=== PATIENT | male | born 1985 | race African-American/Black ===

== ENCOUNTER 2016-05-29 20:32 | Emergency (ER) | payer OTHER ==
[~2016-05-29] VITALS: Ht 185.4 cm; Wt 148.0 kg
[~2016-05-29 20:32] MED LIST: LORTA5 PO
[2016-05-29 20:36] VITALS: BP 141/86; PULSE 104; RESP 18; TEMP 99.3; O2SAT 96
[2016-05-29] MEDS ORDERED: SODIUM CHLOR 0.9% 1000 ML INJ 1,000 ML IV ONE (21:00)
[2016-05-29] MEDS ORDERED: ONDANSETRON HCL 4 MG/2 ML VIAL IV PUSH ONE (21:00)
[2016-05-29] MEDS ORDERED: KETOROLAC TROMETHAMINE 30 MG/ML (IVP) VIAL IV PUSH ONE (21:00)
[2016-05-29 21:13] LABS: AUTOMATED NEUTROPHIL # 3.8 TH/MM3 (1.8-7.7); BASOPHIL # 0.1 TH/MM3 (0-0.2); BASOPHIL % 2.9 % (0.0-2.0); EOSINOPHIL % 0.6 % (0.0-4.0); HEMATOCRIT 44.1 % (39.0-51.0); HEMO FLAGS DIFF FINAL; LYMPH % 9.9 % (9.0-44.0); LYMPHOCYTE # 0.5 TH/MM3 (1.0-4.8); MEAN CELL VOLUME 82.4 FL (80.0-100.0); MEAN CORPUSCULAR HEMOGLOBIN 26.9 PG (27.0-34.0); MEAN CORPUSCULAR HGB CONC 32.6 % (32.0-36.0); MONO % 11.7 % (0.0-8.0); NEUT % 74.9 % (16.0-70.0); PLATELET COUNT 189 TH/MM3 (150-450); RED BLOOD COUNT 5.35 MIL/MM3 (4.50-5.90); RED CELL DISTRIBUTION WIDTH 13.1 % (11.6-17.2)
--- NOTE | 2016-05-29 21:13 | PD ---
HPI Chief Complaint: cough and cold symptoms Time Seen by Provider: 20:47 Travel History International Travel<30 days: No Contact w/Intl Traveler<30days: No Traveled to known affect area: No History of Present Illness HPI The patient is a 31-year-old [place] male who presents emergency department for cough and cold symptoms. The patient states his symptoms started 2 days ago with a sore throat, nasal congestion, dry nonproductive cough. Patient does note subjective fevers at home, took Tylenol at approximately 4 PM. He does note intermittent headaches, but denies any photophobia or neck pain. The patient did complain of nausea and vomiting yesterday, nausea has slightly improved. He did have 1 episode of diarrhea. He also complains of diffuse body aches and low back pain. Symptoms are moderate, slightly alleviated with Tylenol, and there are no known exacerbating factors. PFSH Past Medical History Asthma: Yes Social History Alcohol Use: No Tobacco Use: No Substance Use: No Allergies-Medications (Allergen,Severity, Reaction): Coded Allergies: No Known Allergies (Unverified , 02/08/13) Reported Meds & Prescriptions Reported Meds & Active Scripts Active No Active Prescriptions or Reported Medications Review of Systems Except as stated in HPI: all other systems reviewed are Neg General / Constitutional: Positive: Fever HENT: Positive: Headaches, Sore Throat, Congestion, No: Neck Pain Respiratory: Positive: Cough, No: Shortness of Breath Gastrointestinal: Positive: Nausea, Vomiting, No: Abdominal Pain Genitourinary: No: Dysuria Musculoskeletal: Positive: Myalgias Skin: No Rash Physical Exam Narrative GENERAL: Awake, alert, pleasant 31-year-old male who appears his stated age and is in no acute respiratory distress. SKIN: Slightly diaphoretic. HEAD: Atraumatic. Normocephalic. EYES: Pupils equal and round. Pupils are 3 mm bilateral and reactive. EOMs are intact. No obvious photophobia. ENT: No nasal bleeding or discharge. Mild erythema without exudate in posterior oropharynx. NECK: Trachea midline. No JVD. No meningeal signs. CARDIOVASCULAR: Regular, tachycardic with a heart rate of 102. RESPIRATORY: No accessory muscle use. Clear to auscultation. Breath sounds equal bilaterally. GASTROINTESTINAL: Abdomen soft, non-tender, nondistended. No rebound tenderness. MUSCULOSKELETAL: No obvious deformities. No clubbing. No cyanosis. No edema. NEUROLOGICAL: Awake and alert. No obvious cranial nerve deficits. Motor grossly within normal limits. Normal speech. PSYCHIATRIC: Appropriate mood and affect; insight and judgment normal. Data Data Last Documented VS Vital Signs Date Time Temp Pulse Resp B/P Pulse Ox O2 Delivery O2 Flow Rate FiO2 05/29/16 21:10 Room Air 05/29/16 20:36 99.3 104 18 141/86 96 Orders Influenzae A/B Antigen (05/29/16 20:54) Chest, Single Ap (05/29/16 ) Complete Blood Count With Diff (05/29/16 20:54) Comprehensive Metabolic Panel (05/29/16 20:54) Sodium Chlor 0.9% 1000 Ml Inj (Ns 1000 M (05/29/16 21:00) Ondansetron Inj (Zofran Inj) (05/29/16 21:00) Ketorolac Inj (Toradol Inj) (05/29/16 21:00) Labs Laboratory Tests Test 05/29/16 21:08 White Blood Count 5.0 TH/MM3 Red Blood Count 5.35 MIL/MM3 Hemoglobin 14.4 GM/DL Hematocrit 44.1 % Mean Corpuscular Volume 82.4 FL Mean Corpuscular Hemoglobin 26.9 PG Mean Corpuscular Hemoglobin 32.6 % Concent Red Cell Distribution Width 13.1 % Platelet Count 189 TH/MM3 Mean Platelet Volume 8.3 FL Neutrophils (%) (Auto) 74.9 % Lymphocytes (%) (Auto) 9.9 % Monocytes (%) (Auto) 11.7 % Eosinophils (%) (Auto) 0.6 % Basophils (%) (Auto) 2.9 % Neutrophils # (Auto) 3.8 TH/MM3 Lymphocytes # (Auto) 0.5 TH/MM3 Monocytes # (Auto) 0.6 TH/MM3 Eosinophils # (Auto) 0.0 TH/MM3 Basophils # (Auto) 0.1 TH/MM3 CBC Comment DIFF FINAL Differential Comment Sodium Level 136 MEQ/L Potassium Level 4.2 MEQ/L Chloride Level 101 MEQ/L Carbon Dioxide Level 27.3 MEQ/L Anion Gap 8 MEQ/L Blood Urea Nitrogen 8 MG/DL Creatinine 0.93 MG/DL Estimat Glomerular Filtration 115 ML/MIN Rate Random Glucose 103 MG/DL Calcium Level 9.1 MG/DL Total Bilirubin 0.5 MG/DL Aspartate Amino Transf 76 U/L (AST/SGOT) Alanine Aminotransferase 117 U/L (ALT/SGPT) Alkaline Phosphatase 47 U/L Total Protein 7.7 GM/DL Albumin 3.9 GM/DL MDM Medical Decision Making Medical Screen Exam Complete: Yes Emergency Medical Condition: Yes Medical Record Reviewed: Yes Interpretation(s) Last Impressions Chest X-Ray 05/29/16 0000 Signed Impressions: Service Date/Time: Sunday, May 29, 2016 21:10 - CONCLUSION: No acute disease. Mark Ivory MD Laboratory Tests Test 05/29/16 21:08 White Blood Count 5.0 TH/MM3 Red Blood Count 5.35 MIL/MM3 Hemoglobin 14.4 GM/DL Hematocrit 44.1 % Mean Corpuscular Volume 82.4 FL Mean Corpuscular Hemoglobin 26.9 PG Mean Corpuscular Hemoglobin 32.6 % Concent Red Cell Distribution Width 13.1 % Platelet Count 189 TH/MM3 Mean Platelet Volume 8.3 FL Neutrophils (%) (Auto) 74.9 % Lymphocytes (%) (Auto) 9.9 % Monocytes (%) (Auto) 11.7 % Eosinophils (%) (Auto) 0.6 % Basophils (%) (Auto) 2.9 % Neutrophils # (Auto) 3.8 TH/MM3 Lymphocytes # (Auto) 0.5 TH/MM3 Monocytes # (Auto) 0.6 TH/MM3 Eosinophils # (Auto) 0.0 TH/MM3 Basophils # (Auto) 0.1 TH/MM3 CBC Comment DIFF FINAL Differential Comment Sodium Level 136 MEQ/L Potassium Level 4.2 MEQ/L Chloride Level 101 MEQ/L Carbon Dioxide Level 27.3 MEQ/L Anion Gap 8 MEQ/L Blood Urea Nitrogen 8 MG/DL Creatinine 0.93 MG/DL Estimat Glomerular Filtration 115 ML/MIN Rate Random Glucose 103 MG/DL Calcium Level 9.1 MG/DL Total Bilirubin 0.5 MG/DL Aspartate Amino Transf 76 U/L (AST/SGOT) Alanine Aminotransferase 117 U/L (ALT/SGPT) Alkaline Phosphatase 47 U/L Total Protein 7.7 GM/DL Albumin 3.9 GM/DL Date/Time Procedure Status Source Growth 05/29/16 21:08 Influenza Types A,B Antigen (JEFFRY) - Final Complete Nasal Aspirate Positive For Flu A Antigen Differential Diagnosis Differential diagnosis includes meningitis, influenza, viral syndrome, pneumonia , dehydration, pharyngitis. Narrative Course IV was established, labs are drawn and sent, and the patient was placed on cardiac telemetry monitoring and continuous pulse oximetry monitoring. The patient was administered Toradol and IV fluids. Influenza screen was sent to lab. Chest x-ray was obtained. Chest x-ray was negative. Laboratory evaluation is unremarkable except for elevated monocytes. Influenza screen is positive, therefore, patient will be treated with Tamiflu, work excuse for 3 days, and advised to alternate Tylenol and Motrin for pain and fever. Patient is stable for outpatient follow-up. Diagnosis Primary Impression: Influenza A Patient Instructions: General Instructions Additional Instructions: Work excuse for 3 days. Alternate Tylenol and Motrin for fever. Tamiflu as directed. Plenty fluids to stay hydrated. Return if symptoms worsen or progress. Med/Other Pt SpecificInfo: Prescription(s) given Scripts Oseltamivir (Tamiflu)75 Mg Cap75 Mg PO BID 5 Days Ref 0 Prov:Felix Alarcon MD 05/29/16 Disposition: 01 DISCHARGE HOME Condition: Stable Felix Alarcon MD May 29, 2016 21:13
[2016-05-29 21:21] LABS: CHLORIDE 101 MEQ/L (98-107); POTASSIUM 4.2 MEQ/L (3.5-5.1); SODIUM (NA) 136 MEQ/L (136-145)
[2016-05-29 21:26] LABS: ANION GAP 8 MEQ/L (5-15); BICARBONATE 27.3 MEQ/L (21.0-32.0); BLOOD UREA NITROGEN 8 MG/DL (7-18)
[2016-05-29 21:29] LABS: ALT (GPT) 117 U/L (12-78); AST (GOT) 76 U/L (15-37)
[2016-05-29 21:30] LABS: GLOMERULAR FILTRATION RATE 115 ML/MIN (>89)
[2016-05-29 21:31] LABS: TOTAL BILIRUBIN ADULT 0.5 MG/DL (0.2-1.0)
[2016-05-29 21:32] LABS: ALKALINE PHOSPHATASE 47 U/L (45-117)
--- NOTE | 2016-05-29 21:32 | RADHPO ---
EXAM DATE/TIME: 05/29/2016 21:10 [facility] COMPARISON: No previous studies available for comparison. INDICATIONS : Cough and congestion. MEDICAL HISTORY : None. SURGICAL HISTORY : Knee surgery ENCOUNTER: Initial ACUITY: 2 days PAIN SCORE: 7/10 LOCATION: Bilateral chest FINDINGS: A single view of the chest demonstrates the lungs to be symmetrically aerated without evidence of mas s, infiltrate or effusion. The cardiomediastinal contours are unremarkable. Osseous structures are intact. CONCLUSION: No acute disease. Mark Ivory MD on May 29, 2016 at 21:30 Board Certified Radiologist. This report was verified electronically.
[2016-05-29] MEDS ORDERED: OSEL75 PO (21:46)
[2016-05-29 22:12] VITALS: BP 142/55
[2016-05-29 22:14] VITALS: RESP 18
== END 2016-05-29 22:30 | disposition home or self-care (01) ==
LOC: PHED 20:32
DX: J09.X2 Influenza due to identified novel influenza A virus with other respiratory manifestations (principal); R51 Headache; M54.5 Low back pain
CPT/HCPCS: 71010; 80053; 85025; 87804; 96361; 96374; 96375; 99283; J1885; J2405; J7030

== ENCOUNTER 2017-03-06 10:13 | Emergency (ER) | payer OTHER ==
[~2017-03-06] VITALS: Ht 185.4 cm; Wt 136.0 kg
[~2017-03-06 10:13] MED LIST changes: -LORTA5 PO; +OSEL75 PO
[2017-03-06 10:22] VITALS: BP 132/72; PULSE 92; RESP 18; TEMP 98.1; O2SAT 97
--- NOTE | 2017-03-06 11:10 | PD ---
HPI Chief Complaint: Musculoskeletal Complaint Time Seen by Provider: 11:03 Travel History International Travel<30 days: No Contact w/Intl Traveler<30days: No Traveled to known affect area: No History of Present Illness HPI 32-year-old male presents to the emergency department for evaluation right ankle pain that started yesterday. He denies any traumatic injury. He states it worsened tomorrow this morning when he put weight on it. He denies any history of injury to the right ankle. Patient denies any other complaints. No head injury or LOC. No neck pain or back pain. No chest pain or abdominal pain. Her nausea, vomiting, diarrhea. Pain is worse movement. Alleviating factor is rest. He has not taken anything [id number] for the pain. He denies any history of IV drug use. He denies any fevers. Severity is mild. [facility] Past Medical History Medical History: Denies Significant Hx Asthma: Yes Diminished Hearing: No ?: Not Social History Alcohol Use: No Tobacco Use: No Substance Use: No Allergies-Medications (Allergen,Severity, Reaction): Coded Allergies: No Known Allergies (Unverified Allergy, Unknown, 03/06/17) Reported Meds & Prescriptions Reported Meds & Active Scripts Active Review of Systems Except as stated in HPI: all other systems reviewed are Neg Physical Exam Narrative GENERAL: Well-nourished, well-developed male patient, ambulatory. Afebrile. SKIN: Focused skin assessment warm/dry. No erythema or warmth over right ankle. HEAD: Normocephalic. Atraumatic. EYES: No scleral icterus. No injection or drainage. NECK: Supple, trachea midline. No JVD or lymphadenopathy. CARDIOVASCULAR: Regular rate and rhythm without murmurs, gallops, or rubs. Right pedal pulse is 2+. RESPIRATORY: Breath sounds equal bilaterally. No accessory muscle use. Lungs are clear to auscultation. GASTROINTESTINAL: Abdomen soft, non-tender, nondistended. MUSCULOSKELETAL: No cyanosis, or edema. Patient has tenderness over right anterior and medial ankle. No lateral tenderness. No dorsal foot tenderness. He has full sensation distal right lower extremity. No calf tenderness or swelling. BACK: Nontender without obvious deformity. No CVA tenderness. Data Data Last Documented VS Vital Signs Date Time Temp Pulse Resp B/P (MAP) Pulse Ox O2 Delivery O2 Flow Rate FiO2 03/06/17 10:22 98.1 92 18 132/72 (92) 97 Orders Orders Ankle, Complete ([id number]) (03/06/17 ) Ibuprofen (Motrin) (03/06/17 11:15) Ice / Cold Pack PRN (03/06/17 11:07) Splint Or Brace Apply/Monitor (03/06/17 11:40) Crutches (03/06/17 11:40) MDM Medical Decision Making Medical Screen Exam Complete: Yes Emergency Medical Condition: Yes Medical Record Reviewed: Yes Interpretation(s) x-ray of the right ankle - CONCLUSION: Unremarkable examination of the right ankle. Differential Diagnosis Sprain versus muscle strain versus fracture versus contusion versus gout versus septic arthritis Narrative Course 32-year-old male presents to the emergency department for evaluation of right ankle pain that started yesterday without injury. No evidence of septic joint on exam. Patient is given ibuprofen 800 mg by mouth. Ice pack is applied. X- ray of the right ankle is ordered and pending. X-ray of the right ankle is unremarkable. Patient provided Toño bandage and crutches. He'll be discharged with a prescription for ibuprofen for pain. He is to follow orthopedist if pain continues or worsens. Follow-up with your primary care physician. Return to the emergency department for any acute worsening of symptoms. Diagnosis Primary Impression: Right ankle pain Qualified Codes: M25.571 - Pain in right ankle and joints of right foot Referrals: Orthopedist Primary Care Physician Patient Instructions: Ankle Sprain (ED), General Instructions Additional Instructions: Wear Toño bandage and use crutches as needed for support. Take ibuprofen as instructed as needed with food for pain. Ice for 20 minutes 4-5 times daily. Elevate. Follow-up with your primary care physician. Return to the emergency department for any acute worsening of symptoms. Med/Other Pt SpecificInfo: Prescription(s) given Scripts Ibuprofen (Ibuprofen) 800 Mg Tab 800 MG PO TID Y for PAIN SCALE 1 TO 10, #21 TAB 0 Refills Prov: Kyung Hernandez LEONIE 03/06/17 Disposition: 01 DISCHARGE HOME Condition: Stable Kyung Hernandez LEONIE Mar 06, 2017 11:10
[2017-03-06] MEDS ORDERED: IBUPROFEN 800 MG TAB PO ONE (11:15)
--- NOTE | 2017-03-06 11:32 | RADRPT ---
EXAM DATE/TIME: 03/06/2017 11:11 [facility] COMPARISON: No previous studies available for comparison. INDICATIONS : Right ankle pain; No known injury. MEDICAL HISTORY : None. SURGICAL HISTORY : None. ENCOUNTER: Initial ACUITY: 2 days PAIN SCORE: 10/10 LOCATION: Right medial ankle. FINDINGS: Three view exam was performed of the right ankle. The bony structures are in normal alignment. No e vidence of fracture, dislocation, or soft tissue swelling. The ankle mortise is intact. No radiopaq ue foreign bodies are seen. Bony mineralization is normal. CONCLUSION: Unremarkable examination of the right ankle. Quang Kim Jr., MD on March 06, 2017 at 11:28 Board Certified Radiologist. This report was verified electronically.
[2017-03-06] MEDS ORDERED: IBUP1TAB7 PO (11:42)
== END 2017-03-06 12:03 | disposition home or self-care (01) ==
LOC: PHEFT 10:13
DX: M25.571 Pain in right ankle and joints of right foot (principal); Z87.09 Personal history of other diseases of the respiratory system
CPT/HCPCS: 73610; 99283; E0113